=== PATIENT | male | born 1990 | race Caucasian/White ===

== ENCOUNTER 2022-03-18 15:34 | Emergency (ER) | payer OTHER, SELFPAY ==
[2022-03-18 15:57] VITALS: BP 138/71; PULSE 72; RESP 18; TEMP 36.6; O2SAT 100
--- NOTE | 2022-03-18 16:08 | ED.URI ---
HPI - URI/Sore Throat General Chief Complaint: Upper Respiratory Infection Stated Complaint: congestion Time Seen by Provider: 03/18/22 16:10 Source: patient, RN notes reviewed and old records reviewed Mode of arrival: ambulatory Limitations: no limitations History of Present Illness HPI Narrative: 32-year-old male who presents to [facility] with complaints of cough for 1 week duration which he states is improved, he still continues to have some sinus congestion and drainage with expectoration of green sputum. Patient reports that he has not had a fever that he is aware of with no chills or sweats. Patient denies any shortness of breath or any wheezing.Patient reports that he has not had COVID vaccinations or flu shot. He states that he did home COVID tests on Thursday and Thursday which were both negative. MD elicited complaint: cough, rhinorrhea and nasal congestion Onset (ago): week(s) (1) Description of mucous: green Treatments prior to arrival: other (Mucinex) Related Data Allergies Allergy/AdvReac Type Severity Reaction Status Date / Time No Known Allergies Allergy Mild Verified 03/18/22 16:00 Review of Systems Review of Systems: CONSTITUTIONAL: Denies fever, chills, or sweats. EYES: Denies visual changes, redness, or discharge. ENT: Positive for rhinorrhea, congestion,no sore throat, no otalgia. CARDIOVASCULAR: Denies chest pain, palpitations, or edema. RESPIRATORY: Positive for cough denies dyspnea. GASTROINTESTINAL: Denies abdominal pain, nausea, vomiting, or diarrhea. GENITOURINARY: Denies dysuria or hematuria. SKIN: Denies rash or itching. MUSCULOSKELETAL: Denies back pain, joint pain, or myalgia. NEUROLOGIC: Denies headache, numbness, or weakness. PSYCHIATRIC: Denies anxiety or depression. [facility] Past Medical History Medical History (Updated 03/19/22 @ 09:38 by Eugenia Sood NP) ADHD (attention deficit hyperactivity disorder) Surgical History Surgical History (Updated 03/19/22 @ 09:37 by Eugenia Sood NP) History of tonsillectomy Hx of cholecystectomy Family History Family History (Updated 03/19/22 @ 09:39 by Eugenia Sood NP) Grandparent Diabetes mellitus Father Carcinoma of colon Social History Social History (Updated 03/19/22 @ 09:36 by Eugenia Sood NP) Smoking status: Never smoker Alcohol intake: current Alcohol use details: social Substance use type: does not use Living arrangements: with family Gender identity (if verbalized by the patient): Male Comments At time of signature, agree with nursing past medical, surgical, social and family history. There is no relevant family history pertinent to the presenting complaint Exam Narrative: GENERAL: Well-appearing, well-nourished, and in no acute distress. HEAD: Normocephalic, atraumatic. EYES: PERRLA and EOMI. ENT: Nares red, light green rhinorrhea no epistaxis. Mucous membranes moist.TM's normal with good light reflex no drainage in ear canals, throat red with no lesions or exudates, no tonsils, post nasal drainage present NECK: Supple.no lymphadenopathy CHEST: Clear to auscultation. No respiratory distress. some productive cough noted, no tachypnea with SAO2 100% on room air HEART: Regular rate and rhythm. No murmur heard. Normal peripheral pulses. ABDOMEN: Soft, nontender, nondistended, normal active bowel sounds. EXTREMITIES: Normal range of motion. No edema. SKIN: Warm, dry, no rash. NEURO: No focal deficits. Alert and oriented x3. Course Course Level of Care: Express Care Visit Vital Signs Vital signs: Vital Signs Temperature 36.6 C 03/18/22 15:57 Pulse Rate 72 03/18/22 15:57 Respiratory Rate 18 03/18/22 15:57 Blood Pressure 138/71 03/18/22 15:57 Pulse Oximetry 100 03/18/22 15:57 Oxygen Delivery Room Air 03/18/22 15:57 Temperature 36.6 C 03/18/22 15:57 Pulse Rate 72 03/18/22 15:57 Respiratory Rate 18 03/18/22 15:57 Blood Pressure 138/71 03/18/22 15:57 Pulse
== END 2022-03-18 16:37 | disposition home or self-care (01) ==
PROVIDERS: Emergency Provider Registered Nurse
DX: J02.9 Acute pharyngitis, unspecified (principal); R05.9 Cough, unspecified; Z28.310 Unvaccinated for COVID-19
CPT/HCPCS: 99213; G0463

== ENCOUNTER 2022-09-16 14:56 | Emergency (ER) | payer OTHER, SELFPAY ==
[2022-09-16 15:17] VITALS: BP 129/72; PULSE 105; RESP 18; TEMP 36.8; O2SAT 100
--- NOTE | 2022-09-16 15:51 | ED.URI ---
HPI - URI/Sore Throat General Chief Complaint: Upper Respiratory Infection Stated Complaint: cough Time Seen by Provider: 09/16/22 15:53 Source: patient Mode of arrival: ambulatory Limitations: no limitations History of Present Illness HPI Narrative: 32-year-old male presents with complaint of fatigue, fever, body aches, headache, cough since yesterday. Reports influenza exposure at work. Denies chest pain and shortness breath. No nausea vomiting diarrhea. Taking Mucinex to treat cough. All systems reviewed and negative except as noted above. Related Data Allergies Allergy/AdvReac Type Severity Reaction Status Date / Time No Known Allergies Allergy Mild Verified 09/16/22 15:36 Review of Systems Review of Systems: CONSTITUTIONAL: Reports fever, chills, or sweats. EYES: Denies visual changes, redness, or discharge. ENT: Denies rhinorrhea, congestion, sore throat, or otalgia. CARDIOVASCULAR: Denies chest pain, palpitations, or edema. RESPIRATORY: reports cough. Denies dyspnea. GASTROINTESTINAL: Denies abdominal pain, nausea, vomiting, or diarrhea. GENITOURINARY: Denies dysuria or hematuria. SKIN: Denies rash or itching. MUSCULOSKELETAL: Denies back pain, joint pain, or myalgia. NEUROLOGIC: Denies headache, numbness, or weakness. PSYCHIATRIC: Denies anxiety or depression. All other systems reviewed are negative, except as documented in HPI. [facility] Past Medical History Medical History (Updated 09/16/22 @ 16:00 by Shanita Yusuf NP) ADHD (attention deficit hyperactivity disorder) Surgical History Surgical History (Updated 03/19/22 @ 09:37 by Eugenia Sood NP) History of tonsillectomy Hx of cholecystectomy Family History Family History (Updated 03/19/22 @ 09:39 by Eugenia Sood NP) Grandparent Diabetes mellitus Father Carcinoma of colon Social History Social History (Updated 03/19/22 @ 09:36 by Eugenia Sood NP) Smoking status: Never smoker Alcohol intake: current Alcohol use details: social Substance use type: does not use Gender identity (if verbalized by the patient): Male Comments At time of signature, agree with nursing past medical, surgical, social and family history. There is no relevant family history pertinent to the presenting complaint. Exam Narrative: GENERAL: This is a well-nourished, well-developed patient. Patient ill-appearing but no distress. HEAD: normocephalic, atraumatic. EYES: PERRL. Sclera clear/white. Vision is grossly intact. EARS: External ears normal, auditory canals clear and without drainage, TMs normal without perforation. Hearing grossly intact. NOSE: External nose normal with no obvious nasal discharge, nares without redness, no rhinorrhea. THROAT: Mucous membranes moist, Erythema to posterior pharynx. NECK: Neck supple, non-tender without lymphadenopathy, masses or thyromegaly. CARDIOVASCULAR: Regular rate and rhythm without murmurs, gallops, or rubs. RESPIRATORY: Clear to auscultation. Breath sounds equal bilaterally. No wheezes, rales, or rhonchi. SKIN: warm, Dry, intact with no suspicious lesions or rash, good texture and turgor. NEURO: awake, alert, and oriented to person, place and time. There were no obvious focal neurologic abnormalities. EXTREMITIES: No joint tenderness, effusion, or edema noted. Course Course Level of Care: Express Care Visit Vital Signs Vital signs: Vital Signs Temperature 36.8 C 09/16/22 15:17 Pulse Rate 105 H 09/16/22 15:17 Respiratory Rate 18 09/16/22 15:17 Blood Pressure 129/72 09/16/22 15:17 Pulse Oximetry 100 09/16/22 15:17 Oxygen Delivery Room Air 09/16/22 15:17 Temperature 36.8 C 09/16/22 15:17 Pulse Rate 105 H 09/16/22 15:17 Respiratory Rate 18 09/16/22 15:17 Blood Pressure 129/72 09/16/22 15:17 Pulse Oximetry 100 09/16/22 15:17 Oxygen Delivery Room Air 09/16/22 15:17 Reviewed MDM - URI/Sore Throat MDM Narrative Medical decision
== END 2022-09-16 16:04 | disposition home or self-care (01) ==
PROVIDERS: Emergency Provider Nurse Practitioner Family; PCP Internal Medicine
DX: B34.9 Viral infection, unspecified (principal)
CPT/HCPCS: 99213; G0463

== ENCOUNTER 2024-08-10 17:41 | Emergency (ER) | payer OTHER, SELFPAY ==
--- NOTE | 2024-08-10 17:49 | ED.EYEPROB ---
HPI - Eye Problem General Chief complaint: Eye Problems Stated complaint: fragment in eye Time Seen by Provider: 08/10/24 17:54 Source: patient Mode of arrival: ambulatory Limitations: no limitations History of Present Illness HPI Narrative: Year old male presented for complaint of left eye foreign body sensation after cutting the grass this evening. States he believes grass or dirt flew into the eye. He rinsed the eye with eye drops prior to arrival. States pain is minimal rates 1/10, with slightly blurry vision. Patient was wearing protective glasses at the time. Does not wear contact lenses. chief complaint: eye pain Related Data Allergies Allergy/AdvReac Type Severity Reaction Status Date / Time No Known Allergies Allergy Mild Verified 08/10/24 18:00 Review of Systems Review of Systems: CONSTITUTIONAL: Denies body aches, fever, chills EYES:Endorses FB sensation to left eye denies, photophobia swelling, drainage ENT: Denies rhinorrhea, congestion, sore throat, or otalgia. CARDIOVASCULAR: Denies chest pain, palpitations RESPIRATORY: Denies cough or dyspnea. SKIN: Denies wounds. NEUROLOGIC: Denies headache All systems reviewed & are unremarkable except as noted in HPI and below PMFSH Past Medical History Medical History ADHD (attention deficit hyperactivity disorder) Surgical History Surgical History History of tonsillectomy Hx of cholecystectomy Family History Family History Grandparent Diabetes mellitus Father Carcinoma of colon Social History Social History Smoking status: Never smoker Alcohol intake: current Alcohol use details: social Substance use type: does not use Living arrangements: with family Gender identity (if verbalized by the patient): Male Comments At time of signature, I have reviewed and agree with nursing past medical, surgical, social and family history unless otherwise noted. Please see nursing chart for further information. There is no relevant family history pertinent to the presenting complaint Exam Narrative: GENERAL: Well-appearing HEAD: Normocephalic, atraumatic. EYES: Mild left conjunctival injection, no eye lid swelling, no discharge. PERRLA, EOMI. Lid eversion shows no foreign body. No corneal abrasion or ulceration identified on Wood's lamp. 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 ENT: Mucous membranes pink and moist. No rhinorrhea. CHEST: Even and nonlabored SKIN: Warm, dry, Normal skin turgor. NEURO: No focal deficits. Alert and oriented x3 PSYCH: Normal affect. Course Course Emergency Course: Patient is aware of diagnosis, understands and agrees to treatment plan. Anticipatory guidance given. Patient agrees to follow-up as directed and is aware of reasons to seek care at the emergency department. Portions of this record may have been created with voice recognition software Level of Care: Express Care Visit Vital Signs Vital signs: Vital Signs Temperature 97.9 F 08/10/24 17:53 Pulse Rate 66 08/10/24 17:53 Respiratory Rate 18 08/10/24 17:53 Blood Pressure 126/71 08/10/24 17:53 Pulse Oximetry 99 08/10/24 17:53 Oxygen Delivery Room Air 08/10/24 17:53 Temperature 97.9 F 08/10/24 17:53 Pulse Rate 66 08/10/24 17:53 Respiratory Rate 18 08/10/24 17:53 Blood Pressure 126/71 08/10/24 17:53 Pulse Oximetry 99 08/10/24 17:53 Oxygen Delivery Room Air 08/10/24 17:53 Procedures FB Removal Eye Foreign Body #1: Foreign Body Removal Date: 08/10/24 Location: eye (L) Topical anesthetic used: tetracaine Foreign body: other (none) Evidence of corneal penetration: No Procedure performed under: other (Rogers lamp) Patient tolerated procedure: well and no complications Foreign Body Removal Narrative: Left Eye was anesthetized with 1 drop of tetracaine and anesthesia was achieved. Lid was everted and examined for foreign body. No foreign body, corneal abrasion, or ulceration identified with Rogers lamp. The eye was flushed with eye wash. Pt tolerated procedure well. MDM - Eye Problem MDM Narrative Medical decision making narrative: Discussed physical exam findings, no apparent foreign body noted on exam. Patient will follow-up with ophthalmology. Reviewed prescriptions. Advised supportive measures and signs/symptoms to go to the ER. Pt is appropriate for outpt treatment and f/u. Differential Diagnosis Differential diagnosis: Likely corneal abrasion, conjunctivitis, acute iritis, periorbital cellulitis, corneal ulcer and other Discharge Plan Discharge Clinical Impression: Corneal irritation of left eye Patient Disposition: Home, Self-Care Condition: Stable Instructions: Antibiotic Form, Corneal Abrasion (ED) Additional Instructions: Corneal abrasions will heal in 1-2 days. Use the drops as directed You can wear sunglasses or stay in low light to avoid light sensitivity. Do not touch or rub your eye. Use over the counter lubricating eye drops as needed for irritation Do not wear contact lenses until issue is resolved You may take Tylenol or ibuprofen for pain Follow-up with cleaning attendant if condition is not improving in 2-3days. [facility] [phone] [facility] [phone] [facility] [phone] [facility] [phone] Prescriptions: New ofloxacin 0.3 % drops See Rx Instructions .ROUTE .COMPLEX Qty: 10 0RF Rx Instructions: put 2 drops into left eye every 4 hours x 2 days, then 2 drops 4 times/day days 3-7 ketorolac 0.5 % drops 1 drp LEFT EYE Q6H PRN (Reason: pain) Qty: 3 0RF Follow-up/Referrals: PHYSICIAN,FOOD SELECTOR [Primary Care Provider] -
[2024-08-10 17:53] VITALS: BP 126/71; PULSE 66; RESP 18; TEMP 36.6; O2SAT 99
[2024-08-10] MEDS: DACRIOSE EYE IRRIGATION 118 ML BOTTLE AFFCTD EYE (18:15)
[2024-08-10] MEDS: TETRACAINE HCL 0.5% OPHTH SOLN 4 ML BTL AFFCTD EYE (18:16)
[2024-08-10] MEDS: FLUORESCEIN SOD 1 MG/STRIP AFFCTD EYE (18:16)
== END 2024-08-10 18:20 | disposition home or self-care (01) ==
PROVIDERS: Emergency Provider Nurse Practitioner Family; Referring Provider Family Medicine
DX: H57.12 Ocular pain, left eye (principal)
CPT/HCPCS: 99213; A9270; G0463